=== PATIENT | female | born 1975 | race Caucasian/White ===

== ENCOUNTER 2017-08-09 10:10 | Emergency (ER) | payer BC, OTHER ==
[2017-08-09] MEDS ORDERED: Ketorolac 60 MG/2 ML SDV IM ONE (10:38)
--- NOTE | 2017-08-09 11:34 | CR ---
T-spine The thoracic vertebrae demonstrate normal alignment. There are no compression deformities. There is n o disc space narrowing. Impression: 1. No acute findings.
--- NOTE | 2017-08-09 11:35 | CR ---
C-spine There is straightening of the cervical spine with loss of the normal lordosis. There is no vertebral subluxation. The disc spaces are maintained. There are no degenerative findings. The soft tissues are unremarkable. Impression: 1. Loss of normal lordotic curvature. 2. Otherwise negative exam.
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
== END 2017-08-09 12:17 | disposition home or self-care (01) ==
LOC: JP.ED 10:10
DX: M62.838 Other muscle spasm (principal)
CPT/HCPCS: 72050; 72072; 96372; 99284; J1885